=== PATIENT | female | born 1945 | race Caucasian/White ===

== ENCOUNTER → 2020-03-28 14:09 | Outpatient (BNVA) | payer MEDICARE, SELFPAY | PROVIDERS: PCP Family Medicine; Visit Provider Surgery | DX: S01.312A Laceration without foreign body of left ear, initial encounter (principal); S01.311A Laceration without foreign body of right ear, initial encounter | CPT/HCPCS: 99202 ==

== ENCOUNTER 2020-04-26 12:57 | Outpatient (REF) | payer MEDICARE, SELFPAY ==
[2020-04-26 12:45] VITALS: BP 175/77; PULSE 82; RESP 18; TEMP 36.3; O2SAT 99; BMI 71.7
[2020-04-26 14:40] VITALS: BP 134/68; PULSE 72; RESP 16; O2SAT 95
--- NOTE | 2020-04-26 14:43 | W.PM.OPN ---
Operative Note Operative Note Date of Service: 04/26/20 Narrative: Preoperative diagnosis: bilateral split earlobes Postoperative diagnosis: Same Procedure: Repair of bilateral split earlobes, 2 holes each earlobe Anesthesia: local 1% lidocaine at 1% with epinephrine 6 cc Estimated blood loss: 5 cc Specimen: none Immediate complications: none Indications: This is a 74-year-old who has 2 piercings in each ear lobe and has had enlargement of the piercing sites over time so that there is a very thin bridge of skin located at the inferior aspect. Repair is planned. She is familiar with the technique and risks of infection, bleeding, scarring and contour irregularity. Procedure in detail: With her in the supine position, time-out procedure was performed. The right ear lobe was repaired 1st. The right pinna was prepped with Betadine solution as was surrounding skin. The right earlobe was infiltrated initially with 1% lidocaine and about group home through the procedure additional infiltration was carried out with 1% lidocaine with epinephrine. A total of 3 cc was employed. The epithelium and immediate subcutaneous tissue surrounding the piercing sites were excised. Subcutaneous tissues were reapproximated at each site with a single interrupted suture of 600 Polysorb. Skin was closed with interrupted sutures of 6 0 fast-absorbing plain. After completing the closure, there was a significant irregularity along the inferior margin anteriorly at the base of the anterior piercing site. Additional skin and subcutaneous tissue was excised there and the area was reclosed with interrupted sutures of 6 0 fast-absorbing plain. The area was cleansed with saline solution and a light gauze dressing was applied. She then turned her head to the right and did the left pinna and surrounding skin was prepped with Betadine solution. The left earlobe was infiltrated with 1% lidocaine with epinephrine. The skin and immediate subcutaneous tissue surrounding both piercing sites was excised. The wounds were then closed in the same fashion as employed on the right and the area was cleansed and a light gauze dressing was applied. Incision lengths on the right, 12 mm anteriorly and 8 mm posteriorly. On the left, 10 mm anteriorly and 8 mm posteriorly. She tolerated the procedure well. She will keep the areas clean and dry for 24 hours and will then remove the dressings. She will be seen in the office in 1 week for wound check.
== END 2020-04-26 12:58 | disposition home or self-care (01) ==
LOC: HO.MS 12:57
PROVIDERS: Visit Provider Surgery
DX: H61.113 Acquired deformity of pinna, bilateral (principal); Z78.9 Other specified health status
CPT/HCPCS: 69110

== ENCOUNTER → 2020-05-04 10:37 | Outpatient (BNVA) | payer MEDICARE, SELFPAY | PROVIDERS: Visit Provider Surgery | DX: S01.31 Laceration without foreign body of ear (principal) | CPT/HCPCS: 99212 ==